=== PATIENT | female | born 1960 | race Caucasian/White ===

== ENCOUNTER 2017-04-28 11:57 | Inpatient (IN) ==
[2017-04-28] MEDS ORDERED: Vancomycin (wt based) 1,000 MG VIAL IV SCH (15:00)
[2017-04-28] MEDS ORDERED: Vancomycin 1,000 MG in D5% in Water 250 ML IVPB ONE (15:00)
[2017-04-28 15:25] LABS: Basophils % 0.4 %; Eosinophils # 0.2 K/mcL (0.0-0.6); Eosinophils % 2.4 %; Hematocrit 37.1 % (35.3-44.9); Hemoglobin 11.9 g/dL (11.5-15.4); Immature Granulocytes % 0.3 % (0-4); Lymphocytes # 1.5 K/mcL (0.6-4.6); Lymphocytes % 15.5 %; Mean Corpuscular HGB Conc 32.1 g/dL (31.6-35.5); Mean Corpuscular Hemoglobin 30.7 pg (28.0-33.3); Mean Corpuscular Volume 95.9 fL (83.0-100.0); Mean Platelet Volume 8.7 fL (9.4-12.4); Monocytes # 0.8 K/mcL (0.0-1.3); Neutrophils # 6.9 K/mcL (1.6-8.9); Platelet Count 263 K/mcL (140-400); Red Blood Count 3.87 M/mcL (3.82-4.97); Red Cell Distribution Width 12.3 % (11.5-14.5); Segmented Neutrophils % 73.4 %
[2017-04-28 15:35] LABS: BUN/Creatinine Ratio 28 (6-26); Blood Urea Nitrogen 26 mg/dL (7-20); eGFR For African Americans > 60 (> 60); eGFR For Non-African Americans > 60 (> 60)
[2017-04-28] MEDS: *HR* HYDROcodone/Acet 7.5/325 mg TABLET PO PRN ×2 (17:31→21:46)
[2017-04-28] MEDS: BuPROPion SR (12 HR) 150 MG TABLET PO SCH (20:42)
[2017-04-28] MEDS: Gabapentin 300 MG CAPSULE PO SCH (20:43)
[2017-04-29] MEDS: *HR* HYDROcodone/Acet 7.5/325 mg TABLET PO PRN ×4 (06:10→19:20)
[2017-04-29] MEDS: Vancomycin 1,000 MG in D5% in Water 250 ML IVPB SCH ×2 (08:22→20:54)
[2017-04-29] MEDS: BuPROPion SR (12 HR) 150 MG TABLET PO SCH ×2 (08:23→20:53)
[2017-04-29] MEDS: Gabapentin 300 MG CAPSULE PO SCH ×3 (08:23→20:53)
[2017-04-29] MEDS: Losartan/HCTZ 50-12.5 TABLET PO SCH (08:23)
--- NOTE | 2017-04-29 14:52 | Orthopedics Progress Note ---
Date of Encounter: 04/29/17 Time of Encounter: 12:30 - Assessment and Plan (1) Cellulitis of finger of left hand Current Visit: Yes Status: Acute Please refer to Dr. Saucedo's office note from [facility] (scanned in) for H&P. Minimal improvement overnight. Has received 2 doses of IV vancomycin so far. Discussed case with Dr. Saucedo who recommended bedside I&D. I discussed this procedure as well as r/b/a with the patient and she expressed understanding. Consent was signed and given to nurse. A digital block was performed on the left long finger using 8cc of 1% lidocaine. The finger was prepped and draped in sterile fashion using hibiclense. A roughly 1cm incision was made using #11 blade on the radial side of the left long finger over proximal phalanx. Blood and scant amount purulent drainage was expressed after palpation of the area and probed with hemostats to break up any loculations. Wound cultures collected and sent for testing. Incision was irrigated with saline and iodoform packing was placed inside incision. Bulky gauze dressings and kerlix applied overtop. I will check on patient tomorrow to remove the packing. The dressings are to be left alone unless drainage soaks through then can be changed but leaving packing in place. Continue to elevate hand by stockinette from IV pole. Continue ROM of finger as tolerated. Continue IV vancomycin. Subjective Principal diagnosis: left long finger cellulitis Interval history: Patient was admitted yesterday after office visit with Dr. Saucedo for left hand cellulitis.She was started on IV vancomycin. Patient states she feels good today with no complications overnight. She has been trying to keep the hand elevated in the stockinette and working on motion of the fingers. Denies any numbness. Pain localized to long finger and does not radiate into hand. Objective Vital signs: Vital Signs Temp Pulse Resp BP Pulse Ox 04/29/17 10:38 98.1 F 78 16 122/79 95 04/29/17 08:32 94 04/29/17 07:01 98.0 F 90 18 126/79 94 04/29/17 04:01 98.4 F 66 14 111/62 97 04/29/17 00:17 98.1 F 87 14 104/67 98 04/28/17 20:50 95 04/28/17 20:36 97.9 F 94 14 113/71 95 04/28/17 15:38 98.0 F 97 15 110/72 98 Intake and Output 04/28/17 04/29/17 04/29/17 23:59 07:59 15:59 Intake Total 560 / 560 200 / 200 490 / 490 Balance 560 / 560 200 / 200 490 / 490 Intake: IV Fluids 250 / 250 Vancocin 1,000 MG In 250 / 250 Dextrose 5% 250 ML @ 166. 667 mls/hr IVPB Q12H [facility] Rx#:[id number] Oral 560 / 560 200 / 200 240 / 240 Other: Meal Dinner Breakfast Percent of Meal Consumed 50% 100% # Voids 1 1 Incision: swollen (left long fingers continues to have swelling and erythema most prominently around proximal phalanx. No open wounds or drainage. tenderness to palpation over dorsal MCPJ and volar side of proximal phalanx. Improving ROM but still limited at PIPJ. brisk cap refill. NV intact.) - Labs CBC & BMP: 04/28/17 15:06 04/28/17 15:05 Labs: Abnormal lab results MPV 8.7 fL (9.4-12.4) L 04/28/17 15:06 ESR 20 mm/hr (0-15) H 04/28/17 15:06 BUN 26 mg/dL (7-20) H 04/28/17 15:05 BUN/Creatinine Ratio 28 (6-26) H 04/28/17 15:05 C-Reactive Protein 10 mg/L (Less than 5) H 04/28/17 15:06 Consult Discharge Plan - Plan Referrals: Jayden Lazo Jr, MD [Primary Care Provider] -
[2017-04-30] MEDS: *HR* HYDROcodone/Acet 7.5/325 mg TABLET PO PRN ×4 (02:13→16:38)
[2017-04-30 05:55] LABS: Basophils % 0.4 %; Eosinophils # 0.2 K/mcL (0.0-0.6); Eosinophils % 1.5 %; Hematocrit 36.3 % (35.3-44.9); Hemoglobin 11.8 g/dL (11.5-15.4); Immature Granulocytes % 0.4 % (0-4); Lymphocytes # 1.8 K/mcL (0.6-4.6); Lymphocytes % 16.5 %; Mean Corpuscular HGB Conc 32.5 g/dL (31.6-35.5); Mean Corpuscular Hemoglobin 30.9 pg (28.0-33.3); Mean Platelet Volume 8.9 fL (9.4-12.4); Monocytes # 1.2 K/mcL (0.0-1.3); Monocytes % 10.9 %; Neutrophils # 7.7 K/mcL (1.6-8.9); Platelet Count 261 K/mcL (140-400); Red Blood Count 3.82 M/mcL (3.82-4.97); Red Cell Distribution Width 12.3 % (11.5-14.5); Segmented Neutrophils % 70.3 %
[2017-04-30] MEDS: BuPROPion SR (12 HR) 150 MG TABLET PO SCH ×2 (08:01→20:41)
[2017-04-30] MEDS: Gabapentin 300 MG CAPSULE PO SCH ×3 (08:01→20:41)
[2017-04-30] MEDS: Losartan/HCTZ 50-12.5 TABLET PO SCH (08:02)
[2017-04-30] MEDS: Vancomycin 1,000 MG in D5% in Water 250 ML IVPB SCH ×2 (08:02→20:39)
--- NOTE | 2017-04-30 15:00 | Orthopedics Progress Note ---
Date of Encounter: 04/30/17 Time of Encounter: 12:45 - Assessment and Plan (1) Cellulitis of finger of left hand Current Visit: Yes Status: Acute Please refer to Dr. Saucedo's office note from [facility] (scanned in) for H&P. Packing removed from the incision today. No active drainage on exam. New dry gauze dressings applied. Begin washing incision with soap/water 3xdaily and apply new dressings each time. The erythema and swelling have not improved despite IV abx and bedside I&D yesterday. ESR, CRP, and WBC have all elevated as well. Will continue IV vancomycin and add IV zosyn now. Preliminary cx results show G+ coci, presumptive MRSA - will be placed on contact precautions. Plan for surgery tomorrow for left long finger I&D in the OR by Dr. Saucedo. NPO after midnight tonight. Continue to elevate hand by stockinette from IV pole. Continue ROM of finger as tolerated. Subjective Principal diagnosis: left long finger cellulitis Interval history: Patient states she feels good with no problems overnight. States she did not keep her hand inside the stockinette but did keep it propped up on pillows overnight. States the dressings had to be changed twice since yesterday due to drainage. Some numbness to finger around incision. Objective Vital signs: Vital Signs Temp Pulse Resp BP Pulse Ox 04/30/17 11:30 98.7 F 92 16 116/67 95 04/30/17 07:33 98.0 F 96 16 128/81 99 04/30/17 00:27 99.5 F 101 16 96/59 96 04/29/17 20:36 94 04/29/17 19:44 98.3 F 100 14 104/69 92 04/29/17 15:33 98.3 F 107 18 127/73 97 Intake and Output 04/29/17 04/30/17 04/30/17 23:59 07:59 15:59 Intake Total 850 / 850 400 / 400 970 / 970 Output Total Balance 850 / 850 399 / 399 970 / 970 Intake: IV Fluids 250 / 250 250 / 250 Vancocin 1,000 MG In 250 / 250 250 / 250 Dextrose 5% 250 ML @ 166. 667 mls/hr IVPB Q12H [facility] Rx#:[id number] Oral 600 / 600 400 / 400 720 / 720 Output: Urine Other: Meal Dinner Lunch Percent of Meal Consumed 100% 100% # Voids 1 1 Incision: swollen (Erythema mostly on proximal phalanx and radial side of long finger and over 3rd MC head spreading to distal finger. proximal phalanx continues to have surrounding swelling. Incision on radial side of finger still open with packing intact. no active drainage on palpation. tenderness to palpation of long finger. ROM limited. brisk cap refill, NV intact.) - Labs CBC & BMP: 04/30/17 05:24 04/28/17 15:05 Labs: Abnormal lab results MPV 8.9 fL (9.4-12.4) L 04/30/17 05:24 ESR 45 mm/hr (0-15) H 04/30/17 05:24 BUN 26 mg/dL (7-20) H 04/28/17 15:05 BUN/Creatinine Ratio 28 (6-26) H 04/28/17 15:05 C-Reactive Protein 57 mg/L (Less than 5) H 04/30/17 05:24 - VTE Documentation of Mechanical Device: Intermittent pneumatic compression device Consult Discharge Plan - Plan Referrals: Jayden Lazo Jr, MD [Primary Care Provider] -
[2017-04-30] MEDS: Piperacillin/Tazobactam 3.375 GM in D5% in Water (Mini-Bag+) 100 ML IVPB SCH (15:48)
[2017-04-30] MEDS ORDERED: Ondansetron 4 MG/2 ML VIAL IVP PRN (19:40)
--- NOTE | 2017-04-30 23:39 | Anesthesia Evaluation PreOp ---
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 Chronic Pain maintaiend on Gabapentin) Other Medical History: Other (RA, C-spine spondylosis, C5-7 disc dz) Anesthesia History: Past Anesthesia Alcohol Use: none Drug use: none Medications and Allergies BuPROPion SR (12 HR) [Wellbutrin SR] 150 mg PO BID 09/17/16 [History] Duloxetine HCl [Cymbalta] 60 mg PO BID 09/17/16 [History] Gabapentin [Neurontin] 600 mg PO TID 09/17/16 [History] HYDROcodone/Acet 7.5/325 mg [[place] 7.5-325 mg] 1 tab PO Q4H PRN 09/17/16 [ History] Losartan/Hydrochlorothiazide [Hyzaar 100-25 Tablet] 1 tab PO DAILY 09/17/16 [ History] Oxaprozin [Daypro] 600 mg PO BID 09/17/16 [History] Simvastatin [Zocor] 40 mg PO HS 09/17/16 [History] Acetaminophen/Diphenhydramine [Acetaminophen Pm Caplet] 1 each PO HS PRN [History] Ascorbic Acid/Vitamin E/Biotin [Hair Skin Nails-Biotin Gummies] 1 each PO DAILY 04/28/17 [History] Allergies Sulfa (Sulfonamide Antibiotics) Adverse Reaction (Verified 04/28/17 15:54) Gastrointestinal Upset - Meds/Allergy Pre-op Review Medications Reviewed: Yes Allergies Reviewed: Yes Anesthesia Results - Labs 04/30/17 05:24 04/28/17 15:05 Laboratory Results Anesthesia Exam Vital Signs Temp Pulse Resp BP Pulse Ox 04/30/17 23:14 97.6 F 75 18 110/68 98 04/30/17 19:39 97.7 F 89 16 109/70 99 04/30/17 19:33 99 04/30/17 11:30 98.7 F 92 16 116/67 95 04/30/17 07:33 98.0 F 96 16 128/81 99 04/30/17 00:27 99.5 F 101 16 96/59 96 Intake and Output 04/30/17 04/30/17 04/30/17 07:59 15:59 23:59 Intake Total 400 / 400 970 / 970 950 / 950 Output Total 1 / 1 Balance 399 / 399 970 / 970 950 / 950 Intake: IV Fluids 250 / 250 350 / 350 Zosyn 3.375 GM In 100 / 100 Dextrose 5% (Minibag+) 100 ML 100 ML @ 25 mls/hr IVPB Q8HR [facility] Rx#: [id number] Vancocin 1,000 MG In 250 / 250 250 / 250 Dextrose 5% 250 ML @ 166. 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: Other (RICARDO's) Anesthesia History: No Prior Anesthetic Complications - Meds/Allergy Pre-op Review Beta Blockers on Current Med List: No Anesthesia Results - Labs 05/01/17 05:26 05/01/17 05:26 - Imaging EKG: report reviewed (05/17/2015 SINUS RHYTHM POSSIBLE LEFT ATRIAL ENLARGEMENT BORDERLINE LEFT AXIS DEVIATION RIGHT BUNDLE BRANCH BLOCK) Anesthesia Exam NPO (# of Hours): 8 Pain Scale: 10 (back of head) Pain Scale Used: Numeric (1 - 10) - HEENT Pupil (Motor): EOMI Mallampati: II Teeth: Normal Oral Opening: Greater than 3 - 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
[2017-05-01] MEDS: Piperacillin/Tazobactam 3.375 GM in D5% in Water (Mini-Bag+) 100 ML IVPB SCH ×3 (00:42→23:18)
[2017-05-01] MEDS: *HR* HYDROcodone/Acet 7.5/325 mg TABLET PO PRN ×3 (00:42→21:48)
[2017-05-01 05:43] LABS: Basophils % 0.2 %; Eosinophils # 0.2 K/mcL (0.0-0.6); Eosinophils % 1.9 %; Hematocrit 35.5 % (35.3-44.9); Hemoglobin 11.6 g/dL (11.5-15.4); Immature Granulocytes % 0.4 % (0-4); Lymphocytes # 1.5 K/mcL (0.6-4.6); Lymphocytes % 16.6 %; Mean Corpuscular HGB Conc 32.7 g/dL (31.6-35.5); Mean Corpuscular Hemoglobin 30.8 pg (28.0-33.3); Mean Corpuscular Volume 94.2 fL (83.0-100.0); Mean Platelet Volume 8.8 fL (9.4-12.4); Monocytes # 1.2 K/mcL (0.0-1.3); Monocytes % 12.8 %; Neutrophils # 6.1 K/mcL (1.6-8.9); Platelet Count 271 K/mcL (140-400); Red Blood Count 3.77 M/mcL (3.82-4.97); Red Cell Distribution Width 11.9 % (11.5-14.5); Segmented Neutrophils % 68.1 %
[2017-05-01 05:56] LABS: BUN/Creatinine Ratio 20 (6-26); Blood Urea Nitrogen 16 mg/dL (7-20); C-Reactive Protein 66 mg/L (Less than 5); Calcium 9.8 mg/dL (8.6-10.8); Carbon Dioxide 25 mEq/L (19-29); Chloride 105 mEq/L (98-109); Glucose 114 mg/dL (70-99); Osmolality,Calculated 294 (280-300); Potassium 3.3 mEq/L (3.5-4.5); Sodium 141 mEq/L (136-145); eGFR For African Americans > 60 (> 60); eGFR For Non-African Americans > 60 (> 60)
[2017-05-01] MEDS: BuPROPion SR (12 HR) 150 MG TABLET PO SCH ×2 (08:36→17:58)
[2017-05-01] MEDS: Gabapentin 300 MG CAPSULE PO SCH ×2 (08:36→17:58)
[2017-05-01] MEDS: Losartan/HCTZ 50-12.5 TABLET PO SCH ×2 (08:37→17:57)
[2017-05-01] MEDS: Vancomycin 1,000 MG in D5% in Water 250 ML IVPB SCH ×2 (08:43→21:38)
[2017-05-01] MEDS ORDERED: *HR* Propofol 200 MG/20 ML VIAL IVP ONE (13:53)
[2017-05-01] MEDS ORDERED: *HR* FentaNYL (PF) 100 MCG/2 ML VIAL ONE (13:53)
[2017-05-01] MEDS ORDERED: *HR* Midazolam HCl 2 MG/2 ML VIAL ONE (13:53)
[2017-05-01] MEDS ORDERED: Dexamethasone 4 MG/ML VIAL ONE (15:29)
[2017-05-01] MEDS ORDERED: Ondansetron 4 MG/2 ML VIAL ONE (15:29)
[2017-05-01] MEDS ORDERED: *HR* Morphine 2 MG/ML SYRINGE IVP PRN ×2 (15:44→23:40)
--- NOTE | 2017-05-01 15:59 | Operative Note ---
Date of procedure: 05/01/17 Pre-op diagnosis: Left long finger abscess involving flexed and sheath Post-op diagnosis: same Procedure: Left long finger re-incision and drainage of abscess with incision and drainage with irrigation of flexor sheath Anesthesia: JOSE Surgeon: Shelton Saucedo Baker Helper: Marcela Pulido Estimated blood loss (cc): 5 Tourniquet Time (Minutes): 12 Specimen: Cultures Condition: stable Disposition: PACU Procedure in Detail: Indications: Patient is admitted for antibiotics for cellulitis of the left hand and long finger. The patient was not responding well. A bedside I&D was performed with minimal purulent fluid encountered. Cultures obtained. The patient still was not responding well after the I&D. Zosyn was added to vancomycin. She continued to have erythema and swelling with elevated markers. Cultures grew out MRSA. A formal I&D was planned. Procedure: The patient received IV antibiotics from the floor, was brought into the operating room and placed or table in supine position with the left upper extremity placed on hand table. A sign in was performed. The patient underwent general anesthesia. A tourniquet was placed on the operative arm close to the axilla. The left upper extremity was then prepped and draped in usual sterile fashion. A time was performed. The operative extremity was then elevated, exsanguinated with an Jarett wrap (excluding the fingers) and the tourniquet was raised to a pressure of 250 mmHg. The patient had a 2 cm mid lateral incision was made on the radial side of the long finger centered between the MP and the PIP joint. The subcutaneous tissue was bluntly spread, purulent fluid was encountered. The incision was extended another 1 cm. The flexor tendon sheath was exposed, keeping the neurovascular bundles in the volar flap. A small rent was made partially releasing the A3 patty . No gross pus was seen in the flexor tendon sheath, but there was some turbid fluid. A 2.5 cm oblique incision was made over the A1 patty at the base of the left long finger just proximal to the metacarpophalangeal joint flexion crease. I bluntly dissected through the subcutaneous tissue and identified the flexor tendon sheath system. The digital neurovascular bundles were identified and were retracted. Ragnell retractors were used to protect the neurovascular bundles on either side. The A1 patty was then sharply incised at its distal end, giving exposure of the flexor tendon sheath system. The finger was flexed , and turbid fluid came out from underneath the A2 patty. A 14-gauge Angiocath was inserted, and the irrigated out the flexor sheath as exiting distally through the A3 patty. I also irrigated the soft tissue of the radial side of the digit. The patient also had significant erythema on the dorsal radial side of MP joint. Hemostat was used to spread soft tissue here and a pocket of pus was encountered. The patient had a limited deviation of the long finger. Going back through the proximal volar incision, I bluntly dissected and the second webspace make sure there is narrow webspace abscess. No further pus was encountered. The tourniquet was let down. The wounds were irrigated with normal saline once again and hemostasis obtained with bipolar electrocautery. Skin incision over the A1 patty was closed with 5-0 nylon simple sutures. The radial midlateral incision was partially closed. This was then packed with quarter- inch iodoform packing. The base of the long finger was infiltrated with 10 mL of 0.5% Marcaine providing a local block.Sterile dressings applied, the patient was extubated and taken to the recovery room in stable condition.
--- NOTE | 2017-05-01 16:18 | Anesthesia Evaluation Post Op ---
Date of Encounter: 05/01/17 Time of Encounter: 16:17 - Vital Signs Vital Signs: Last Vital Signs Temp 97.7 F 05/01/17 15:59 Pulse 80 05/01/17 16:09 Resp 16 05/01/17 16:09 BP 139/81 05/01/17 16:09 Pulse Ox 99 05/01/17 16:09 - Lungs Lungs: Clear Ascult./Percussion - Airway Airway: Non-obstructed - Cardiovascular Regular Rate - Mental Status Mental Status: Alert & Oriented, Answers Appropriately - Pain Pain Scale: 3 - Nausea Vomiting Nausea Vomiting: Not Present - Hydration Hydration: Ice chips - Discharge PostOp Status: Transfer Patient to floor
[2017-05-01] MEDS ORDERED: Ondansetron 4 MG/2 ML VIAL IVP PRN (16:39)
[2017-05-01] MEDS ORDERED: Gabapentin 300 MG CAPSULE PO SCH (21:00)
[2017-05-01] MEDS ORDERED: BuPROPion SR (12 HR) 150 MG TABLET PO SCH (21:00)
[2017-05-01] MEDS ORDERED: *HR* OxyCODONE Immed Rel 5 MG TABLET PO PRN (23:42)
[2017-05-02 01:48] LABS: Hemoglobin 11.1 g/dL (11.5-15.4); Mean Corpuscular HGB Conc 32.6 g/dL (31.6-35.5); Mean Corpuscular Hemoglobin 31.1 pg (28.0-33.3); Mean Corpuscular Volume 95.2 fL (83.0-100.0); Mean Platelet Volume 8.6 fL (9.4-12.4); Platelet Count 289 K/mcL (140-400); Red Blood Count 3.57 M/mcL (3.82-4.97); Red Cell Distribution Width 11.9 % (11.5-14.5)
[2017-05-02] MEDS: BuPROPion SR (12 HR) 150 MG TABLET PO SCH ×2 (08:45→20:08)
[2017-05-02] MEDS: Gabapentin 300 MG CAPSULE PO SCH ×3 (08:45→20:08)
[2017-05-02] MEDS: VITAMIN E PO SCH (08:46)
[2017-05-02] MEDS: ASCORBIC ACID PO SCH (08:46)
[2017-05-02] MEDS: Losartan/HCTZ 50-12.5 TABLET PO SCH (08:46)
[2017-05-02] MEDS: BIOTIN PO SCH (08:46)
[2017-05-02] MEDS: Piperacillin/Tazobactam 3.375 GM in D5% in Water (Mini-Bag+) 100 ML IVPB SCH ×3 (08:56→23:37)
[2017-05-02] MEDS: Vancomycin 1,000 MG in D5% in Water 250 ML IVPB SCH ×2 (08:56→21:49)
[2017-05-02] MEDS ORDERED: Losartan/HCTZ 50-12.5 TABLET PO SCH (09:00)
[2017-05-02] MEDS: *HR* HYDROcodone/Acet 7.5/325 mg TABLET PO PRN (11:15)
[2017-05-02] MEDS: Lactobacillus 1 EACH CAP.SPRINK PO SCH (13:10)
--- NOTE | 2017-05-02 14:18 | Orthopedics Progress Note ---
Date of Encounter: 05/02/17 Time of Encounter: 12:20 - Assessment and Plan (1) Cellulitis of finger of left hand Current Visit: Yes Status: Acute POD#1 left LF I&D Packing removed today. Begin local wound care washing with soap and water 3xdaily and apply new dry gauze/kerlix dressings each time until incision healed. WBC and ESR stable, CRP decreased. Will continue IV abx at least one more night. consider DC tomorrow if showing improvement and then will need to DC on PO abx. She has sulfa allergy. Will send on cipro x [address] Saucedo. Continue to elevate hand by stockinette from IV pole. Continue ROM of finger as tolerated. Will follow up in AB office with Marcela Pulido PA-C on 05/07/17 at 8:00am. Subjective Principal diagnosis: left long finger cellulitis Interval history: Patient doing well with no events over night. minimal pain. States finger is numb. Denies fevers. Objective Vital signs: Vital Signs Temp Pulse Resp BP Pulse Ox 05/02/17 11:49 98.6 F 86 14 124/82 98 05/02/17 07:41 98.7 F 92 14 103/66 98 05/01/17 23:17 98.4 F 90 17 108/67 95 05/01/17 20:20 98.8 F 05/01/17 19:24 100.3 F H 102 17 139/74 98 05/01/17 17:50 99 F 92 16 141/70 96 05/01/17 17:16 98.9 F 88 16 137/80 95 05/01/17 16:45 98.3 F 86 16 131/85 97 05/01/17 16:29 98.3 F 84 17 138/83 98 05/01/17 16:19 81 17 138/83 100 05/01/17 16:09 80 16 139/81 99 05/01/17 15:59 97.7 F 80 16 134/87 98 Intake and Output 05/01/17 05/02/17 05/02/17 23:59 07:59 15:59 Intake Total 250 / 250 100 / 100 470 / 470 Balance 250 / 250 100 / 100 470 / 470 Intake: IV Fluids 250 / 250 100 / 100 350 / 350 Zosyn 3.375 GM In 100 / 100 100 / 100 Dextrose 5% (Minibag+) 100 ML 100 ML @ 25 mls/hr IVPB Q8HR [facility] Rx#: [id number] Vancocin 1,000 MG In 250 / 250 250 / 250 Dextrose 5% 250 ML @ 166. 667 mls/hr IVPB Q12H [facility] Rx#:[id number] Oral 120 / 120 Other: Meal Breakfast Percent of Meal Consumed 100% Stool Size Moderate Stool Consistency loose soft formed - Labs CBC & BMP: 05/02/17 01:30 05/01/17 05:26 Labs: Abnormal lab results RBC 3.57 M/mcL (3.82-4.97) L 05/02/17 01:30 Hgb 11.1 g/dL (11.5-15.4) L 05/02/17 01:30 Hct 34.0 % (35.3-44.9) L 05/02/17 01:30 MPV 8.6 fL (9.4-12.4) L 05/02/17 01:30 ESR 52 mm/hr (0-15) H 05/02/17 01:30 Potassium 3.3 mEq/L (3.5-4.5) L 05/01/17 05:26 Glucose 114 mg/dL (70-99) H 05/01/17 05:26 C-Reactive Protein 32 mg/L (Less than 5) H 05/02/17 01:30 - VTE Reasons for not Prescribing Prophylaxis: Treatment not Indicated - Low risk for VTE Documentation of Mechanical Device: Intermittent pneumatic compression device Consult Discharge Plan - Plan Referrals: Jayden Lazo Jr, MD [Primary Care Provider] -
[2017-05-03 04:10] LABS: BUN/Creatinine Ratio 22 (6-26); Blood Urea Nitrogen 18 mg/dL (7-20); eGFR For African Americans > 60 (> 60); eGFR For Non-African Americans > 60 (> 60)
[2017-05-03] MEDS: Gabapentin 300 MG CAPSULE PO SCH (08:25)
[2017-05-03] MEDS: Losartan/HCTZ 50-12.5 TABLET PO SCH (08:25)
[2017-05-03] MEDS: Lactobacillus 1 EACH CAP.SPRINK PO SCH (08:25)
[2017-05-03] MEDS: BuPROPion SR (12 HR) 150 MG TABLET PO SCH (08:26)
[2017-05-03] MEDS: Piperacillin/Tazobactam 3.375 GM in D5% in Water (Mini-Bag+) 100 ML IVPB SCH (08:26)
[2017-05-03] MEDS: Vancomycin 1,000 MG in D5% in Water 250 ML IVPB SCH (08:27)
[2017-05-03] MEDS: VITAMIN E PO SCH (08:29)
[2017-05-03] MEDS: BIOTIN PO SCH (08:29)
[2017-05-03] MEDS: ASCORBIC ACID PO SCH (08:29)
--- NOTE | 2017-05-03 10:22 | Orthopedics Progress Note ---
Date of Encounter: 05/03/17 Time of Encounter: 10:20 Subjective Principal diagnosis: left long finger cellulitis Interval history: S: Resting in bed comfortably. Left long finger feeling better. Pain controlled O: Afeb/VSS Left long finger incision C/D/I. Mild swelling Ulceration at the radial base with minimal drainage and redness. Looks good overall. Sensation grossly intact distally; Well perfused She can grossly flex and extend the digits with limitations due to pain and edema. A: Post I and D of the left long finger, doing well P: Local wound care, daily soaks. Clindamycin Rx on chart. Elevate. Discharge today and follow up with Marcela Pulido in 1 week. Objective Vital signs: Vital Signs Temp Pulse Resp BP Pulse Ox 05/03/17 07:03 98.2 F 96 14 113/69 97 05/03/17 00:42 98.3 F 86 18 111/69 94 05/02/17 21:09 98.3 F 96 18 119/60 99 05/02/17 15:35 98.6 F 99 16 115/76 98 05/02/17 11:49 98.6 F 86 14 124/82 98 Intake and Output 05/02/17 05/03/17 05/03/17 23:59 07:59 15:59 Intake Total 590 / 590 100 / 100 Balance 590 / 590 100 / 100 Intake: IV Fluids 350 / 350 100 / 100 Zosyn 3.375 GM In 100 / 100 100 / 100 Dextrose 5% (Minibag+) 100 ML 100 ML @ 25 mls/hr IVPB Q8HR [facility] Rx#: [id number] Vancocin 1,000 MG In 250 / 250 Dextrose 5% 250 ML @ 166. 667 mls/hr IVPB Q12H [facility] Rx#:[id number] Oral 240 / 240 - Labs CBC & BMP: 05/02/17 01:30 05/03/17 03:44 Labs: Abnormal lab results RBC 3.57 M/mcL (3.82-4.97) L 05/02/17 01:30 Hgb 11.1 g/dL (11.5-15.4) L 05/02/17 01:30 Hct 34.0 % (35.3-44.9) L 05/02/17 01:30 MPV 8.6 fL (9.4-12.4) L 05/02/17 01:30 ESR 52 mm/hr (0-15) H 05/02/17 01:30 Potassium 3.3 mEq/L (3.5-4.5) L 05/01/17 05:26 Glucose 114 mg/dL (70-99) H 05/01/17 05:26 C-Reactive Protein 32 mg/L (Less than 5) H 05/02/17 01:30 - VTE Reasons for not Prescribing Prophylaxis: Treatment not Indicated - Low risk for VTE Documentation of Mechanical Device: Intermittent pneumatic compression device Consult Discharge Plan - Plan Referrals: Jayden Lazo Jr, MD [Primary Care Provider] -
[2017-05-03 11:09] VITALS: BP 133/80
[2017-05-03] MEDS ORDERED: Aminoglycoside Consult 1 EACH MC ONE (13:19)
== END 2017-05-03 13:20 | disposition home or self-care (01) ==
LOC: 3BNU → 3NENU 16:32 → 3BNU 16:34 → 3NENU 19:29
PROVIDERS: ADMIT Orthopaedic Surgery Hand Surgery; ATTEND Orthopaedic Surgery Hand Surgery

== ENCOUNTER 2019-01-19 00:50 | Observation (INO) ==
[2019-01-19 01:34] LABS: Basophils % 0.7 %; Eosinophils # 0.2 K/mcL (0.0-0.6); Eosinophils % 2.8 %; Hematocrit 39.5 % (35.3-44.9); Hemoglobin 12.7 g/dL (11.5-15.4); Immature Granulocytes % 1.1 % (0-4); Lymphocytes # 1.7 K/mcL (0.6-4.6); Lymphocytes % 27.8 %; Mean Corpuscular HGB Conc 32.2 g/dL (31.6-35.5); Mean Corpuscular Hemoglobin 30.6 pg (28.0-33.3); Mean Corpuscular Volume 95.2 fL (83.0-100.0); Mean Platelet Volume 8.7 fL (9.4-12.4); Monocytes # 0.6 K/mcL (0.0-1.3); Monocytes % 9.9 %; Neutrophils # 3.6 K/mcL (1.6-8.9); Platelet Count 286 K/mcL (140-400); Red Blood Count 4.15 M/mcL (3.82-4.97); Red Cell Distribution Width 12.2 % (11.5-14.5); Segmented Neutrophils % 57.7 %
[2019-01-19 01:49] LABS: BUN/Creatinine Ratio 36 (6-26); Blood Urea Nitrogen 34 mg/dL (6-20); Calcium 10.5 mg/dL (8.6-10.3); Carbon Dioxide 25 mEq/L (23-29); Chloride 105 mEq/L (98-107); Glucose 86 mg/dL (70-105); Osmolality,Calculated 301 (280-300); Potassium 3.6 mEq/L (3.5-5.1); Sodium 142 mEq/L (136-145); eGFR For Non-African Americans > 60 (> 60)
[2019-01-19 01:51] LABS: Troponin I 0.03 ng/mL (< 0.04)
[2019-01-19] MEDS ORDERED: Aspirin 325 MG TABLET PO ONE (02:24)
--- NOTE | 2019-01-19 02:26 | Emergency Department Note ---
Disposition Clinical Impression: Chest pain Qualifiers: Chest pain type: unspecified Qualified Code(s): R07.9 - Chest pain, unspecified Disposition: Admitted As Inpatient Condition: Good Time of Disposition: 03:57 Chest Pain HPI - General Chief Complaint: ED Chest Pain Stated Complaint: CP/Back pain/ into throat, feels like its closing. Time Seen by Provider: 01/19/19 01:51 Source: patient, family () Limitations: no limitations Vital Signs Reviewed: Yes Nursing Notes Reviewed: Yes - History of Present Illness HPI Narrative: 58-year-old female tobacco user, history of hypertension and hyperlipidemia presents to the emergency department with chest pain. She reports approximately 12 hours prior to evaluation she experience chest pain described as a pressure to the midsternum wrapping around to her back and up into the her neck. Grabbed as a strangling feeling around her neck. At that time she was leaving [facility] nursing facility where her daughter who has spina bifida has been admitted there for over 100 days in as she was walking to her car develop the symptoms. Denies any associated shortness of breath nausea or vomiting. Denies any syncope. She sat down and within 5 minutes the pain completely when away. Reports a similar episode approximately a week ago but does not recall the surrounding events. Denies any history of cardiac ischemic disease. No prior evaluation for cardiac illness. She reports a strong family history including her father at the age of 40. Denies any history of blood clots, hormone replacement, long-distance travel or surgeries. She does not report any G.I. bleed symptoms and does not take aspirin. Currently she has no chest pain whatsoever. Pt complaint: chest pain Severity scale (1-10): 0 - Related Data Home Medications Medication Instructions Recorded Confirmed Duloxetine HCl [Cymbalta] 60 mg PO BID 09/17/16 04/28/17 Gabapentin [Neurontin] 600 mg PO TID 09/17/16 04/28/17 HYDROcodone/Acet 7.5/325 mg [[place] 1 tab PO Q4H PRN 09/17/16 04/28/17 7.5-325 mg] Losartan/Hydrochlorothiazide 1 tab PO DAILY 09/17/16 04/28/17 [Hyzaar 100-25 Tablet] Oxaprozin [Daypro] 600 mg PO BID 09/17/16 04/28/17 RX: BuPROPion SR (12 HR) 150 mg PO BID 09/17/16 04/28/17 [Wellbutrin SR] Simvastatin [Zocor] 40 mg PO HS 09/17/16 04/28/17 Acetaminophen/Diphenhydramine 1 each PO HS PRN 04/28/17 04/28/17 [Acetaminophen Pm Caplet] Ascorbic Acid/Vitamin E/Biotin 1 each PO DAILY 04/28/17 04/28/17 [Hair Skin Nails-Biotin Gummies] Allergies Allergy/AdvReac Type Severity Reaction Status Date / Time Sulfa (Sulfonamide AdvReac Gastrointestinal Verified 04/28/17 15:54 Antibiotics) Upset All systems ED: reviewed and negative except as stated. Review of Systems: As Per HPI Constitutional: Denies: fever, chills ENT ED: Denies: congestion Cardiovascular: Reports: chest pain. Denies: palpitations, dyspnea on exertion Respiratory: Denies: cough, dyspnea Gastrointestinal: Denies: abdominal pain, nausea, vomiting Genitourinary: Denies: dysuria Musculoskeletal: Reports: back pain. Denies: neck pain Neurological: Denies: headache Chest Pain PMH - Past Medical History Medical history: Reports: arthritis, hyperlipidemia, hypertension Psychiatric history: Reports: depression - Social History Smoking Status: Current some day smoker Alcohol use: Reports: none Drug use: Reports: none Physical Exam - General Limitations: no limitations General appearance: alert, in no apparent distress - Head Head exam: atraumatic, normocephalic, normal inspection - Eye Eye exam: Present: normal appearance, PERRL, EOMI - ENT ENT exam: normal exam, normal oropharynx, mucous membranes moist - Neck Neck exam: Present: normal inspection, full ROM, trachea midline - Chest Chest inspection: Present: normal inspection, symmetric chest wall rise. Absent: tenderness - Respiratory Respiratory exam: Present: normal lung sounds bilaterally. Absent: respiratory distress, wheezes - Cardiovascular Cardiovascular exam: Present: regular rate, normal rhythm, normal heart sounds. Absent: systolic murmur, diastolic murmur - Expanded Cardiovascular Exam Peripheral pulses: 2+: radial (R), radial (L) - Abdominal Exam Abdominal exam: Present: soft, Non-Tender, normal bowel sounds. Absent: tenderness, distention, guarding, rebound, rigidity - Extremities Exam Extremities exam: Present: normal inspection, full ROM, normal capillary refill. Absent: tenderness, pedal edema, calf tenderness - Back Exam Back exam: Present: normal inspection, full ROM. Absent: tenderness - Neurological Exam Neurological exam: Present: alert, oriented X3 - Psychiatric Psychiatric exam: Present: normal affect, normal mood - Skin Skin exam: Present: warm, dry, intact, normal color. Absent: rash, cyanosis, diaphoresis Course Course Narrative: Patient presents with episode of minimal exertional chest pressure that wraparound to her back and up into her jaw. It was brief and last about 5 minutes after rest. No history of cardiac ischemic disease. She has multiple risk factors. She currently chest pain free. EKG is abnormal but does not reveal any ischemic findings. Her heart score is 6 as her troponin 0.03. At this time will administer aspirin and plan for admission. Patient is in agreement with this plan. - Consultations Consultation #1: Spoke with on-call hospitalist eliza Black to admit for chest pain r/o ACS. No further orders at this time Vital Signs Temperature 98.2 F 01/19/19 00:54 Pulse Rate 93 01/19/19 00:54 Respiratory Rate 16 01/19/19 00:54 Blood Pressure 149/90 01/19/19 00:54 O2 Sat by Pulse Oximetry 99 01/19/19 00:54 Temperature 98.2 F 01/19/19 00:54 Pulse Rate 87 01/19/19 03:19 Respiratory Rate 18 01/19/19 03:19 Blood Pressure 155/94 01/19/19 03:19 O2 Sat by Pulse Oximetry 97 01/19/19 03:19 Oxygen Delivery Oxygen Delivery Room Air Chest Pain - MDM Narrative Medical decision making narrative: Patient was discussed with my attending physician who agrees with ED management and final disposition. They independently evaluated the patient. Please refer to their attestation to this encounter for additional information. This note was generated by [employer] voice recognition software and as a result grammatical or spelling errors may occur using this program. - Medical Records Medical records reviewed: Yes I reviewed the patient's medical records. - Lab Data Lab results reviewed: Yes I reviewed the patient's lab results. Result diagrams: 01/19/19 01:20 01/19/19 01:20 Lab Results 01/19/19 01/19/19 Range/Units 01:20 01:20 WBC 6.2 (4.3-11.1) K/mcL RBC 4.15 (3.82-4.97) M/mcL Hgb 12.7 (11.5-15.4) g/dL Hct 39.5 (35.3-44.9) % MCV 95.2 (83.0-100.0) fL MCH 30.6 (28.0-33.3) pg MCHC 32.2 (31.6-35.5) g/dL RDW 12.2 (11.5-14.5) % Plt Count 286 (140-400) K/mcL MPV 8.7 L (9.4-12.4) fL Immature Gran % 1.1 (0-4) % Seg Neutrophils % 57.7 % Lymphocytes % 27.8 % Monocytes % 9.9 % Eosinophils % 2.8 % Basophils % 0.7 % Neutrophils # 3.6 (1.6-8.9) K/mcL Lymphocytes # 1.7 (0.6-4.6) K/mcL Monocytes # 0.6 (0.0-1.3) K/mcL Eosinophils # 0.2 (0.0-0.6) K/mcL Basophils # 0.0 (0.0-0.2) K/mcL Sodium 142 (136-145) mEq/L Potassium 3.6 (3.5-5.1) mEq/L Chloride 105 (98-107) mEq/L Carbon Dioxide 25 (23-29) mEq/L BUN 34 H (6-20) mg/dL Creatinine 0.94 (0.60-1.20) mg/dL Est GFR ( Amer) > 60 (> 60) Est GFR (Non-Af Amer) > 60 (> 60) BUN/Creatinine Ratio 36 H (6-26) Glucose 86 (70-105) mg/dL Calculated Osmolality 301 H (280-300) Calcium 10.5 H (8.6-10.3) mg/dL Troponin I 0.03 (< 0.04) ng/mL - Radiology Data Radiology results reviewed: Yes I reviewed the patient's radiology results. Chest X-Ray 01/19/19 00:58 IMPRESSION: No acute findings D/ / Britni Alvarado MD / Britni Alvarado MD Interpreting Provider: Britni Alvarado MD - EKG Data EKG attestation: Yes I reviewed and interpreted this EKG. EKG results narrative: EKG performed 0105 normal sinus rhythm 88 beats per minute, right bundle branch block, no ST elevation or depression, T wave inversion seen in septal leads. Compared to prior EKG performed 05/17/2015 which shows similar consistent f indings. No acute ischemic changes. Heart Score - Score History: Moderately Suspicious EKG: Non Specific repolarisation Disturbance Age: 45-65 Risk Factors: Equal/Greater than 3 risk factor or history of atherosclerotic disease Troponin: 1-3x normal limit HEART Score Total: 6 Attestation Statement - Attestation Attestation: Resident Attestation: I examined this patient and my medical decision making was reviewed with the Resident Physician. I agree with the documented findings, disposition and treatment plan as described except to the extent set forth below. We independently had dsji-so-hmbo contact with the patient. Patient presented for evaluation of chest pain. Chest pain in the center of her chest radiating to her jaw. Happened during exertion. Was better with rest. Patient had similar episode last week. Unknown onset at that time. Patient without recent cardiac evaluation. Patient is astigmatic at this time. Patient will undergo further testing for ACS. Patient will likely require admission. No acute distress. Regular rhythm, clear to auscultation bilaterally, abdomen soft nontender palpation, no significant swelling in the lower extremities.
[2019-01-19] MEDS ORDERED: Naloxone 0.4 MG/ML INJ IVP PRN (08:37)
[2019-01-19] MEDS ORDERED: *HR* HYDROcodone/Acet 5/325 mg TABLET PO PRN (08:37)
[2019-01-19] MEDS ORDERED: Ondansetron 4 MG/2 ML VIAL IVP PRN (08:37)
[2019-01-19] MEDS ORDERED: Acetaminophen 325 MG TABLET PO PRN (08:37)
[2019-01-19 09:42] LABS: Chol/HDL Ratio 4.7 (0-4.9); Cholesterol 280 mg/dL (< 200); HDL Cholesterol 60 mg/dL (40-59); LDL Cholesterol,Calculated 176 mg/dL (0-99); Triglycerides 221 mg/dL (< 150)
[2019-01-19 09:43] LABS: Troponin I < 0.03 ng/mL (< 0.04)
--- NOTE | 2019-01-19 11:52 | Internal Med History&Physical ---
Date of Encounter: 01/19/19 Time of Encounter: 08:30 Internal Medicine - H&P: HPI Chief complaint: Chest pain Admitted From: Emergency Dept Plans for Post Hospital Care: Home History of present illness: Ms. Seay is a 58 year old female with known past medical history of hypertension, hyperlipidemia and chronic tobacco dependence patient presented to ER with sudden onset chest pain started yesterday afternoon. Patient stated her chest pain located sub sternally, mid sternum, 7/10 in severity, more like tightness, wrapping around to her back and up into the her neck. In the ER she was given ASA. She does have significant family history of CAD father had [place] when he was 40 y/o. She denied any active CP. Her initial troponin came back is negative. Her EKG did not show any acute ST changes. When I examined her on 3B at bed side, she denied any more active CP and would like to go home. Past Med Surg Social Fam HX - Past Medical History Medical history: arthritis, fibromyalgia, hyperlipidemia, hypertension Psychiatric history: depression - Past Surgical History Additional surgical history: lorna disease,cervical pain,spinal stenosis,pituatary tumor removed,right arm fx,tubal,c section,tonsils,deviated septum,brow lift,lower eyelids - Social History Smoking Status: Current some day smoker Smokeless Tobacco Status: No Alcohol use: none Drug use: none - Family History Mother Living Status: Still Living Hx Family Cardiac Disorders: Yes (pacer,) Hx Family Neurologic Disorders: Yes (dementia) Father Living Status: Hx Family Cardiac Disorders: Yes (CHF, three open hearts,) Internal Medicine - H&P: Meds BuPROPion SR (12 HR) [Wellbutrin SR] 150 mg PO BID 09/17/16 [History] Duloxetine HCl [Cymbalta] 60 mg PO BID 09/17/16 [History] Gabapentin [Neurontin] 600 mg PO TID 09/17/16 [History] HYDROcodone/Acet 7.5/325 mg [[place] 7.5-325 mg] 1 tab PO Q4H PRN 09/17/16 [History] Losartan/Hydrochlorothiazide [Hyzaar 100-25 Tablet] 1 tab PO DAILY 09/17/16 [History] Oxaprozin [Daypro] 600 mg PO BID 09/17/16 [History] Simvastatin [Zocor] 40 mg PO HS 09/17/16 [History] Acetaminophen/Diphenhydramine [Acetaminophen Pm Caplet] 1 each PO HS PRN 04/28/17 [History] Ascorbic Acid/Vitamin E/Biotin [Hair Skin Nails-Biotin Gummies] 1 each PO DAILY 04/28/17 [History] Sertraline [Zoloft] 100 mg PO DAILY 01/19/19 [History] Allergy/AdvReac Type Severity Reaction Status Date / Time Sulfa (Sulfonamide AdvReac Gastrointestinal Verified 04/28/17 15:54 Antibiotics) Upset All Systems PM: A 10-system review of systems was performed and is negative for pertinent findings except as documented above in the HPI. Review of systems: All the systems are reviewed everything is benign except the systems and symptoms I mentioned in the history of present illness - Constitutional Vitals: Temp Pulse Resp BP Pulse Ox 98.0 F 83 16 136/75 97 01/19/19 06:18 01/19/19 06:18 01/19/19 06:18 01/19/19 06:18 01/19/19 06:18 General appearance: Present: cooperative, A&O X 3, no acute distress, answers questions appropriately Exam: See below - Head Head exam: Present: atraumatic, normal inspection - Neck Neck exam general surgery: Present: supple - Respiratory Respiratory exam: Present: decreased breath sounds. Absent: rales, respiratory distress, rhonchi, wheezes - Cardiovascular Cardiovascular exam: Present: RRR, +S1, +S2. Absent: tachycardia - GI/Abdominal GI/Abdominal exam: Present: normal bowel sounds, soft. Absent: rebound, rigid, tenderness - Extremities Exam Extremities exam: Absent: calf tenderness, pedal edema, tenderness - Back Exam Back exam: Absent: CVA tenderness (L), CVA tenderness (R) - Neurological Exam Neurological exam: Present: alert, oriented X3 - Psychiatric Psychiatric exam: Present: normal affect, normal mood - Skin Skin exam: Absent: rash Internal Med - H&P Results - Labs CBC & Chem 7: 01/19/19 01:20 01/19/19 01:20 Labs: Short CBC 01/19/19 Range/Units 01:20 WBC 6.2 (4.3-11.1) K/mcL Hgb 12.7 (11.5-15.4) g/dL Hct 39.5 (35.3-44.9) % Plt Count 286 (140-400) K/mcL Neutrophils # 3.6 (1.6-8.9) K/mcL BMP 01/19/19 01:20 Sodium 142 Potassium 3.6 Chloride 105 Carbon Dioxide 25 BUN 34 H Creatinine 0.94 Glucose 86 Calcium 10.5 H Cardiac Enzymes 01/19/19 01/19/19 Range/Units 01:20 08:53 Troponin I 0.03 < 0.03 (< 0.04) ng/mL - Impressions ITS Impressions Chest X-Ray 01/19/19 00:58 IMPRESSION: No acute findings D/ / Britni Alvarado MD / Britni Alvarado MD Interpreting Provider: Britni Alvarado MD - Assessment and Plan (1) Chest pain Current Visit: Yes Status: Acute Assessment and plan: Will admit the pt into Tele for observation Will place pt on cafeteria monitor check serial troponin so far negative troponin EKG reviewed - No ST changes noticed will start pt on ASA, Nitro PRN for chest pain Will check FLP now Will get stress test today if her second set of troponin are negative. Qualifiers: Chest pain type: unspecified Qualified Code(s): R07.9 - Chest pain, unspecified (2) HTN (hypertension) Current Visit: Yes Status: Acute Assessment and plan: will resume home meds So far stable BP Qualifiers: Hypertension type: essential hypertension Qualified Code(s): I10 - Essential (primary) hypertension (3) Tobacco dependence Current Visit: Yes Status: Acute Assessment and plan: Counseled to quit smoking (4) HLD (hyperlipidemia) Current Visit: Yes Status: Acute Assessment and plan: Ordered lipid profile resumed home med Zocor Qualifiers: Hyperlipidemia type: unspecified Qualified Code(s): E78.5 - Hyperlipidemia, unspecified - Time Spent With Patient Total time spent is greater than 50% in coordination of care (as documented) at patient's floor/unit and/or counseling patient:
[2019-01-19 11:55] VITALS: BP 128/78
--- NOTE | 2019-01-19 12:44 | Discharge Summary ---
- NOTES TO OUTPATIENT PROVIDER Notes to Outpatient Provider: f/u with PCP in one week. Please go for Stress test as scheduled and f/u with PCP for test results. Please quit smoking. Please start taking Lipitor insted of Zocor and also start taking Aspirin 81mg. Orders not resulted at time of discharge: Pending orders 01/19/19 11:57 EKG [ECG 12 lead ECG] [ECG] Stat 01/20/19 07:05 SP exercise nuclear stress Routine Date of Encounter: 01/19/19 Time of Encounter: 12:42 - Discharge Diagnosis (1) Chest pain Priority: Primary Status: Acute Qualifiers: Chest pain type: unspecified Qualified Code(s): R07.9 - Chest pain, unspecified (2) HTN (hypertension) Priority: Secondary Status: Acute Qualifiers: Hypertension type: essential hypertension Qualified Code(s): I10 - Essential (primary) hypertension (3) Tobacco dependence Priority: Secondary Status: Acute (4) HLD (hyperlipidemia) Priority: Secondary Status: Acute Qualifiers: Hyperlipidemia type: unspecified Qualified Code(s): E78.5 - Hyperlipidemia, unspecified Hospital course: Ms. Seay is a 58 year old female with known past medical history of hypertension, hyperlipidemia and chronic tobacco dependence patient presented to ER with sudden onset chest pain started yesterday afternoon. Patient stated her chest pain located sub sternally, mid sternum, 7/10 in severity, more like tightness, wrapping around to her back and up into the her neck. In the ER she was given ASA. She does have significant family history of CAD father had [place] when he was 40 y/o. She denied any active CP. Her serial troponin were negative. Her EKG showed NSR, RBBB, No ST changes, no changes noticed. Due to her high risk for ACS with family history, HTN,HLD and Chronic tobacco dependence, I recommended for stress test. However since pt did use Nicotine this morning we were unable to do stress test. Pt do not want to stay in the hospital till tomorrow for stress test. So will d/c her home with out pt stress test. I did patent counsel the pt to quit smoking. Also her LDL is significantly elevated so changed statin to Lipitor from Zocor. - Time Spent with Patient Total time spent providing and/or coordinating discharge services: - Discharge Medications Prescriptions: New Aspirin Enteric Coated [Aspirin EC] 81 mg PO DAILY #30 tablet. Atorvastatin [Lipitor] 40 mg PO HS #30 tablet Continue BuPROPion SR (12 HR) [Wellbutrin SR] 150 mg PO BID Oxaprozin [Daypro] 600 mg PO BID Losartan/Hydrochlorothiazide [Hyzaar 100-25 Tablet] 1 tab PO DAILY HYDROcodone/Acet 7.5/325 mg [[place] 7.5-325 mg] 1 tab PO Q4H PRN PRN Reason: Pain Gabapentin [Neurontin] 600 mg PO TID Duloxetine HCl [Cymbalta] 60 mg PO BID Acetaminophen/Diphenhydramine [Acetaminophen Pm Caplet] 1 each PO HS PRN PRN Reason: PAIN/SLEEP Ascorbic Acid/Vitamin E/Biotin [Hair Skin Nails-Biotin Gummies] 1 each PO DAILY Sertraline [Zoloft] 100 mg PO DAILY Discontinued Simvastatin [Zocor] 40 mg PO HS Home Medications: BuPROPion SR (12 HR) [Wellbutrin SR] 150 mg PO BID 09/17/16 [History] Duloxetine HCl [Cymbalta] 60 mg PO BID 09/17/16 [History] Gabapentin [Neurontin] 600 mg PO TID 09/17/16 [History] HYDROcodone/Acet 7.5/325 mg [[place] 7.5-325 mg] 1 tab PO Q4H PRN 09/17/16 [History] Losartan/Hydrochlorothiazide [Hyzaar 100-25 Tablet] 1 tab PO DAILY 09/17/16 [History] Oxaprozin [Daypro] 600 mg PO BID 09/17/16 [History] Acetaminophen/Diphenhydramine [Acetaminophen Pm Caplet] 1 each PO HS PRN 04/28/17 [History] Ascorbic Acid/Vitamin E/Biotin [Hair Skin Nails-Biotin Gummies] 1 each PO DAILY 04/28/17 [History] Aspirin Enteric Coated [Aspirin EC] 81 mg PO DAILY #30 tablet. 01/19/19 [Rx] Atorvastatin [Lipitor] 40 mg PO HS #30 tablet 01/19/19 [Rx] Sertraline [Zoloft] 100 mg PO DAILY 01/19/19 [History] Allergies/Adverse Reactions: 3 Allergy/AdvReac Type Severity Reaction Status Date / Time Sulfa (Sulfonamide AdvReac Gastrointestinal Verified 04/28/17 15:54 Antibiotics) Upset Date of admission: 01/19/19 04:45 Primary care physician: Jayden Lazo Jr, MD - Constitutional Vitals: Temp Pulse Resp BP Pulse Ox 98 F 94 17 128/78 97 01/19/19 11:54 01/19/19 11:54 01/19/19 11:54 01/19/19 11:54 01/19/19 11:54 General appearance: Present: cooperative, A&O X 3, no acute distress, answers questions appropriately Exam: Gen: Alert, awake, Oriented to time,place and person Chest: Diminished breath sounds B/L, No wheezing, No crackles, No rales Heart: S1S2+ RRR No murmurs Abd: Soft, NT, BS +, No organomegaly Ext: No edema, pulses are palpable, No calf tenderness Neuro : Benign findings Skin: No rash. - Patient Status Disposition: Home, Self-Care Condition: Good Overall status at discharge: patient is back to baseline - Discharge Instructions Follow Up With: Jayden Lazo Jr, MD [Primary Care Provider] - 01/27/19 10:00 am (Your appointment has been requested. Our offices will call with an appointment time and date.) - Diet and Activity Activity: increase activity as tolerated Diet: low salt diet
--- NOTE | 2019-01-19 21:05 | Electrocardiograph Report ---
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
== END 2019-01-19 14:18 | disposition home or self-care (01) ==
LOC: 3BNU 00:50 → EMEROOARM 00:50 → SUATTDRO 04:45 → 3BNU 05:50
PROVIDERS: ADMIT Internal Medicine; ATTEND Family Medicine

== ENCOUNTER 2020-03-30 11:17 | Observation (INO) ==
[2020-03-30 11:41] LABS: Basophils % 0.4 %; Eosinophils # 0.1 K/mcL (0.0-0.6); Hematocrit 41.3 % (35.3-44.9); Hemoglobin 12.9 g/dL (11.5-15.4); Immature Granulocytes % 0.6 % (0-4); Lymphocytes # 1.6 K/mcL (0.6-4.6); Mean Corpuscular HGB Conc 31.2 g/dL (31.6-35.5); Mean Corpuscular Hemoglobin 29.5 pg (28.0-33.3); Mean Corpuscular Volume 94.3 fL (83.0-100.0); Mean Platelet Volume 8.7 fL (9.4-12.4); Monocytes # 0.5 K/mcL (0.0-1.3); Monocytes % 10.1 %; Neutrophils # 2.9 K/mcL (1.6-8.9); Platelet Count 167 K/mcL (140-400); Red Blood Count 4.38 M/mcL (3.82-4.97); Red Cell Distribution Width 12.3 % (11.5-14.5); Segmented Neutrophils % 56.9 %
[2020-03-30 12:07] LABS: BUN/Creatinine Ratio 18 (6-26); Blood Urea Nitrogen 16 mg/dL (8-23); Calcium 9.1 mg/dL (8.6-10.3); Carbon Dioxide 25 mEq/L (23-29); Chloride 109 mEq/L (98-107); Glucose 84 mg/dL (70-105); Osmolality,Calculated 292 (280-300); Potassium 3.9 mEq/L (3.5-5.1); Sodium 141 mEq/L (136-145); Troponin I < 0.03 ng/mL (< 0.04); eGFR For African Americans > 60 (> 60); eGFR For Non-African Americans > 60 (> 60)
[2020-03-30] MEDS ORDERED: Naloxone 0.4 MG/ML INJ IVP PRN (12:34)
[2020-03-30] MEDS ORDERED: Acetaminophen 325 MG TABLET PO PRN (12:34)
[2020-03-30] MEDS ORDERED: Ondansetron 4 MG/2 ML VIAL IVP PRN (12:34)
[2020-03-30] MEDS ORDERED: Nitroglycerin 0.4 MG TAB.SUBL SL PRN (12:37)
[2020-03-30] MEDS: Gabapentin 300 MG CAPSULE PO SCH ×3 (13:27→19:29)
[2020-03-30] MEDS: *HR* HYDROcodone/Acet 7.5/325 mg TABLET PO PRN ×2 (13:28→19:29)
[2020-03-30] MEDS: *HR* Heparin 5,000 UNIT/ML VIAL SQ SCH (18:07)
[2020-03-30] MEDS: BuPROPion SR (12 HR) 150 MG TABLET PO SCH (19:28)
[2020-03-31] MEDS: *HR* Heparin 5,000 UNIT/ML VIAL SQ SCH (05:42)
[2020-03-31 05:49] LABS: Basophils % 0.2 %; Eosinophils # 0.1 K/mcL (0.0-0.6); Eosinophils % 1.2 %; Hematocrit 41.3 % (35.3-44.9); Hemoglobin 13.4 g/dL (11.5-15.4); Immature Granulocytes % 0.2 % (0-4); Lymphocytes # 1.5 K/mcL (0.6-4.6); Mean Corpuscular HGB Conc 32.4 g/dL (31.6-35.5); Mean Corpuscular Volume 92.6 fL (83.0-100.0); Mean Platelet Volume 8.9 fL (9.4-12.4); Monocytes # 0.5 K/mcL (0.0-1.3); Monocytes % 11.5 %; Neutrophils # 2.2 K/mcL (1.6-8.9); Platelet Count 169 K/mcL (140-400); Red Blood Count 4.46 M/mcL (3.82-4.97); Red Cell Distribution Width 12.3 % (11.5-14.5); Segmented Neutrophils % 51.9 %; White Blood Count 4.3 K/mcL (4.3-11.1)
[2020-03-31 05:58] LABS: INR 0.9; Prothrombin Time 10.2 Seconds (9.4-12.1)
[2020-03-31 06:01] LABS: Activated Partial Thrombo Time 32.3 Seconds (26.0-36.0)
[2020-03-31 06:15] LABS: Alanine Aminotransferase 21 Units/L (7-52); Albumin 4.3 g/dL (3.5-5.7); Albumin/Globulin Ratio 2.3 (1.1-2.2); Alkaline Phosphatase 71 Units/L (34-104); Aspartate Amino Transferase 16 Units/L (13-39); BUN/Creatinine Ratio 21 (6-26); Bilirubin,Total 0.3 mg/dL (0.3-1.0); Blood Urea Nitrogen 20 mg/dL (8-23); Calcium 9.7 mg/dL (8.6-10.3); Carbon Dioxide 26 mEq/L (23-29); Chloride 108 mEq/L (98-107); Chol/HDL Ratio 3.5 (0-4.9); Cholesterol 169 mg/dL (< 200); Globulin 1.9 g/dL (2.4-3.5); Glucose 89 mg/dL (70-105); HDL Cholesterol 48 mg/dL (40-59); LDL Cholesterol,Calculated 78 mg/dL (0-99); Osmolality,Calculated 296 (280-300); Phosphorous 3.7 mg/dL (2.7-4.5); Sodium 142 mEq/L (136-145); Total Protein 6.2 g/dL (6.4-8.9); Triglycerides 214 mg/dL (< 150); eGFR For African Americans > 60 (> 60); eGFR For Non-African Americans 59 (> 60)
[2020-03-31] MEDS ORDERED: Regadenoson 0.4 MG/5 ML SYRINGE IVP ONE (06:46)
[2020-03-31] MEDS ORDERED: Aspirin Enteric Coated 81 MG Tablet PO SCH (09:00)
[2020-03-31] MEDS ORDERED: Metoprolol XL (24 HR) Succ 25 MG TAB.ER.24H PO SCH (09:00)
[2020-03-31] MEDS ORDERED: Isosorbide MONOnitrate (24 HR) 30 MG TAB.ER.24H PO SCH (09:00)
[2020-03-31] MEDS: *HR* HYDROcodone/Acet 7.5/325 mg TABLET PO PRN (09:39)
[2020-03-31] MEDS: BuPROPion SR (12 HR) 150 MG TABLET PO SCH (09:40)
[2020-03-31] MEDS: Gabapentin 300 MG CAPSULE PO SCH (09:40)
[2020-03-31 11:05] VITALS: BP 144/84
== END 2020-03-31 12:42 | disposition home or self-care (01) ==
LOC: EMEROOARM 11:17 → 3BNU 11:17 → SUATTDRO 12:34 → 3BNU 14:11
PROVIDERS: ADMIT Internal Medicine; ATTEND Internal Medicine